=== PATIENT | male | born 1970 | race Two or more races ===

== ENCOUNTER 2024-08-08 08:50 | Day surgery (SDC) | payer MEDICAID, SELFPAY ==
[2024-08-07 14:39] VITALS: BMI 28.2
[2024-08-08] VITALS (12 sets, daily range): BP systolic 123–151; BP diastolic 70–97; PULSE 88–97; RESP 13–22; TEMP 36.2–36.9; O2SAT 98–100; BMI 30.4
[2024-08-08] MEDS: fentaNYL CIT INJ 50 mCg/ML AMP 2ML (ASD USE ONLY) IV (10:55)
[2024-08-08] MEDS: MIDAZOLAM INJ 1 MG/ML VIAL 2 ML (ASD USE ONLY) 2 MG IV ×2 (10:56→11:12)
[2024-08-08] MEDS: DiphenhydrAMINE INJ 50 MG/ML VIAL 25 MG IV (10:56)
--- NOTE | 2024-08-08 11:35 | SUR.OPER ---
ORDERS FOR PATIENT TO BE TRANSFERRED TO ER FOR FURTHER EVALUATION AND SURGICAL CONSULT DUE TO THE OOZING OF BLOOD AT THE COLON ANASTOMOTIC SITE. 1133 [facility] CALLED FOR TRANSPORTATION, THEY ARE NOW ON ROUTE TO OUR FACILITY TO TECHNICIAN CHEMICAL CLEANING PATIENT. 1134 PATIENT MOVED TO PACU TO AWAIT AMBULANCE TRANSPORTATION, PATIENT'S V/S REMAIN STABLE. PATIENT SEDATED AND SLEEPING.
--- NOTE | 2024-08-08 12:01 | SUR.PHASEII ---
1132: Pt arrived in [facility] via gurney. Report from Leatha SUMNER stated pt to be transferred to [facility] ED. Pt obtunded. Resp even, unlabored. VS stable. Dr. Iglesias discussing pt current status with sister. 1142: [facility] arrived. 1147: Pt transferred to [facility] ED.
== END 2024-08-08 11:47 | disposition home or self-care (01) ==
PROVIDERS: PCP Family Medicine; Referring Provider Internal Medicine Gastroenterology; Visit Provider Internal Medicine Gastroenterology
PROC: 0DBE8ZX Excision of Large Intestine, Via Natural or Artificial Opening Endoscopic, Diagnostic (ICD-10-PCS; CPT 45380; principal; 2024-08-08 10:00)
PROC: (CPT 43239; 2024-08-08 10:00)
DX: K64.9 Unspecified hemorrhoids (principal); D50.9 Iron deficiency anemia, unspecified
CPT/HCPCS: 45382; A4649; J1200; J2250; J3010

== ENCOUNTER 2024-08-08 11:53 | Emergency (ER) | payer MEDICAID, SELFPAY ==
[2024-08-08] VITALS (16 sets, daily range): BP systolic 113–135; BP diastolic 66–87; PULSE 65–105; RESP 11–21; TEMP 36.6–37.3; O2SAT 95–121; BMI 30.4
--- NOTE | 2024-08-08 11:53 | PC.NURSE ---
pt arrived by ambulance from out patient surgery center. Pt was having a procedure and started oozing blood from the rectum. Pt given 200 mcg fentanyl, 10 mg versed, and 50 mg benadryl for the procedure and prior to ems arrival. Per ems, pt can get violent coming out os sedation
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
--- NOTE | 2024-08-08 12:03 | EKG_ITS ---
[facility] Test Date: 2024-08-08 Pat Name: MEIR BROOKS Department: Room: - Gender: Male Social Service Technician: : 1970 Requested By: Mark Chappell Order Number: [id number] Reading MD: Mark Chappell Measurements Intervals [place] Rate: 77 P: -35 KS: 129 QRS: 53 QRSD: 110 T: 50 QT: 388 QTc: 440 Interpretive Statements SINUS RHYTHM No previous ECG available for comparison /store/S0/[id number]/ecg/[id number].pdf
--- NOTE | 2024-08-08 12:03 | XR_ITS ---
Examination: AP chest single view Technique one AP portable upright chest single view Exam date and time: August 08, 2024 1331 hours INDICATIONS: Post colonoscopy FINDINGS: Normal heart size No aspiration pneumonia Moderate osteopenia IMPRESSION: Negative for aspiration pneumonia
--- NOTE | 2024-08-08 12:03 | XR_ITS ---
Examination: Abdomen AP single view Technique: AP portable supine abdomen, single view Exam date and time: August 08, 2024 1330 hours INDICATIONS: Status post colonoscopy FINDINGS: Mild small bowel ileus No free air Surgical clips upper right abdomen IMPRESSION: Negative for free air
[2024-08-08] MEDS: PANTOPRAZOLE INJ 40 MG VIAL 80 MG IV (12:41)
[2024-08-08] MEDS: cefTRIAXone/D5w 1gm IV premix 50 ML IV (12:46)
[2024-08-08] MEDS: SODIUM CHLORIDE 0.9% 1000 ML 1,000 ML 999 ML IV (12:49)
[2024-08-08] MEDS: OCTREOTIDE ACET INJ 50 mCg/ML VIAL IV (12:50)
[2024-08-08] MEDS: OCTREOTIDE ACET INJ 1,000 MCG in SODIUM CHLORIDE 0.9% 100 ML 5.1 MCG IV (12:53)
--- NOTE | 2024-08-08 12:57 | PC.NURSE ---
pt family in the room with patient, asked if we can give something something for withdraw pt use of fentany notified BRYANT Crenshaw. BRYANT Crenshaw advised to talk with patient as he is awake and wanting to leave.
--- NOTE | 2024-08-08 13:03 | PC.NURSE ---
pt saying he wants to leave. Got lucy n/p to come talk with pt. Pt informed he is actively bleeding and doctor doing procedure could not stop the bleeding. Informed that he could sign out AMA and could . Pt able to reiterate all warnings. Pt willing at this time to wait uptime the blood count is done incase he needs a transfusion
[2024-08-08 13:05] LABS: Basophils % (Auto) 0 % (0-2.5); Eosinophils % (Auto) 1 % (0-10); Hematocrit 23.4 % (41.0-53.0); Immature Granulocytes % (Auto) 0 % (0-0); Immature Granulocytes Auto 0.01 Thou/mm3 (0.00-0.00); Lymphocytes # (Auto) 0.9 Thou/mm3 (1.0-4.8); Lymphocytes % (Auto) 28 % (10-50); Mean Corpuscular HGB Conc 28.2 g/dl (31.0-37.0); Mean Corpuscular Hemoglobin 23.7 pg (25.0-35.0); Mean Corpuscular Volume 84 fL (80-100); Monocytes # (Auto) 0.4 Thou/mm3 (0.0-0.8); Monocytes % (Auto) 12 % (0-12); Neutrophils % (Auto) 59 % (37-80); Nucleated Red Blood Cell % 0 /100 WBC (0); Platelet Count 207 Thou/mm3 (140-440); RDW Standard Deviation 50.1 fL (35.1-43.9); Red Blood Count 2.78 Miln/mm3 (4.50-5.90); White Blood Count 3.3 Thou/mm3 (3.8-10.6)
[2024-08-08 13:16] LABS: B-Type Natriuretic Peptide < 20 pg/mL (0-100)
[2024-08-08 13:17] LABS: Alanine Aminotransferase 54 U/L (10-49); Albumin, Serum 2.9 gm/dL (3.5-5.0); Albumin/Globulin Ratio 0.6 (1.2-2.2); Alkaline Phosphatase 95 U/L (46-116); Anion Gap 9 (7-16); Aspartate Amino Transferase 107 U/L (0-34); BUN/Creatinine Ratio 18 Ratio (12-20); Bilirubin,Total 0.3 mg/dL (0.3-1.2); Blood Urea Nitrogen 14 mg/dL (9-23); Calcium 7.9 mg/dL (8.3-10.6); Calcium (Corrected) 8.8 mg/dL (8.5-10.1); Carbon Dioxide 24.8 mMol/L (20.0-31.0); Chloride 102 mMol/L (98-107); Creatinine (Component) 0.8 mg/dL (0.6-1.3); Estimated Creatinine Clearance 119.5 mL/min (>60); Globulin 4.9 gm/dL (2.3-3.5); Glucose 91 mg/dL (74-106); Osmolality,Calculated 272 (275-295); Potassium 4.5 mMol/L (3.4-5.1); Sodium 136 mMol/L (136-145); Total Protein 7.8 gm/dL (5.7-8.2); Troponin I < 0.002 ng/mL (0.0-0.045); eGFR > 60 See Note
[2024-08-08 13:26] LABS: Hemoglobin 6.6 g/dL (13.5-16.0)
[2024-08-08 13:41] LABS: INR 2.4 (0.9-1.3); Prothrombin Time 24.5 Seconds (9.0-12.2)
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
[2024-08-08 13:49] LABS: Partial Thromboplastin Time 114.3 Seconds (22.0-36.0)
[2024-08-08 13:55] LABS: Path Review Blood Smear Sent to Pathologist
--- NOTE | 2024-08-08 14:08 | PC.NURSE ---
consent for blood transfusion signed by pt
--- NOTE | 2024-08-08 14:08 | PC.NURSE ---
consent for blood transfusion signed by pt
[2024-08-08] MEDS: DEXTROSE 50%-WATER INJ 50 ML SYRINGE IV (14:21)
--- NOTE | 2024-08-08 15:39 | XR_ITS ---
Examination: CTA abdomen, with intravenous contrast. CTA pelvis, with intravenous contrast. 2-D sagittal and coronal reconstructions. 3-D reconstructions. Date and time of exam: 1742 hours INDICATIONS: Upper gastrointestinal bleeding today CTDI vol (mgy) 19.4 DLP (MGycm) 622 Technique: Multiple CTA images, 2.0 mm slice thickness, obtained abdomen, pelvis, with the high-resolution 64 slice scanner. 100 cc Isovue-370 is administered intravenously. Sagittal and coronal 2-D reconstructions are obtained. 3-D reconstructions, angiographic images are obtained. 3-D postprocessing, including vascular maximum intensity projections. Low dose protocols were performed. One or more of the following dose reduction techniques were used; automated exposure control, adjustment of the mA and/or KV according to patient size, use of iterative reconstruction technique. Findings: Liver is mildly irregular in contour, no focal liver lesions Splenomegaly, 16 cm Upper abdominal hernia defect 5 cm No gallstones No pancreatic or adrenal mass No hydronephrosis Umbilical hernia defect containing small bowel axial image 170, the defect measuring 2.2 cm Small bowel loops are distended Contrast extravasation in colonic and small bowel loops is not depicted Bladder is intact No diverticulitis Advanced degenerative disc disease at the lower 3 lumbar levels with grade 1 anterolisthesis of L5 on S1 IMPRESSION: Cirrhosis Significant splenomegaly Umbilical hernia defect containing small bowel, suspicious for early small bowel obstruction secondary to incarcerated small bowel in the umbilical hernia defect, clinical correlation is advised No abnormal contrast extravasation in the gastrointestinal tract noted Consider radioisotope labeled nuclear medicine gastrointestinal bleeding study follow-up
--- NOTE | 2024-08-08 17:25 | PC.NURSE ---
1st packed cells infused without reaction
--- NOTE | 2024-08-08 17:40 | PC.NURSE ---
unable to do temp pt was in CT
--- NOTE | 2024-08-08 19:14 | PC.NURSE ---
Assumed care of pt. Pt A&O x4, GCS 15. Currently speaking with ENVIRONMENTAL SERVICES ASSOCIATE and this telegraphic typewriter mechanic stating he would like to leave. Pt verbalized understanding of risks of leaving AMA, up to and including and stated I know they've told me this a million times before . Pt stated he had ride home and denied questions or concerns for staff prior to leaving.
--- NOTE | 2024-08-09 13:19 | PC.NURSE ---
Called pt to inquire on well-being. No answer, message was left asking pt to return the call.
== END 2024-08-08 19:32 | disposition left against medical advice (07) ==
LOC: SERX 13:44
PROVIDERS: Nurse Practitioner Family; Emergency Provider Emergency Medicine; PCP Family Medicine
DX: K92.2 Gastrointestinal hemorrhage, unspecified (principal); Z98.890 Other specified postprocedural states; Z53.29 Procedure and treatment not carried out because of patient's decision for other reasons
CPT/HCPCS: 36415; 36430; 71045; 74018; 74174; 80053; 83880; 84484; 85025; 85610; 85730; 86850; 86900; 86901; 86923; 87040; 93005; 96365; 96366; 99285; A4649; J0696; J2354; J2470; J7030; J7050; P9016; Q9967